=== PATIENT | male | born 1960 | race Caucasian/White ===

== ENCOUNTER 2020-05-28 20:23 | Emergency (ER) | payer BC ==
[~2020-05-28] VITALS: Ht 188 cm; Wt 104.5 kg
[2020-05-28 20:28] VITALS: TEMP 98.7
[2020-05-28 21:13] VITALS: BP 147/76; PULSE 76
== END 2020-05-28 21:13 | disposition home or self-care (01) ==
LOC: COL.ER 20:23
DX: M54.5 Low back pain (principal)
CPT/HCPCS: J1885